=== PATIENT | male | born 1975 | race African-American/Black ===

== ENCOUNTER 2017-02-03 09:57 | Day surgery (SDC) | payer OTHER ==
[~2017-02-03 09:57] MED LIST: CIPROFLOXACIN 400 MG/D5W RTU 400 MG/200 ML RTUPB IV PRN; LACTATED RINGERS 1000 ML IV PRN; LIDOCAINE 0.5% INJ-PF (5 MG/ML) 50 ML SDV SUBCUT PRN; MORPHINE SULFATE 10 MG/ML INJ IV PRN; ONDANSETRON HCL INJ/PF 4 MG/2 ML SDV IV PRN
[2017-02-03] MEDS ORDERED: OPIUM/BELLADONNA ALKALOIDS 30-16.2 MG SUPP.RECT PR ONE (10:48)
[2017-02-03] MEDS ORDERED: LIDOCAINE 2% JELLY 30 ML TUBE ONE (10:50)
[2017-02-03] MEDS ORDERED: MIDAZOLAM 2 MG/2 ML INJ ONE (12:08)
[2017-02-03] MEDS ORDERED: FENTANYL CITRATE INJ/PF 100 MCG/2 ML AMPUL ONE (12:08)
[2017-02-03] MEDS ORDERED: PROMETHAZINE HCL INJ 25 MG/1 ML VIAL IV PRN ×2 (12:38)
[2017-02-03] MEDS ORDERED: MORPHINE SULFATE 10 MG/ML INJ IV PRN (12:38)
[2017-02-03] MEDS ORDERED: OXYCODONE-ACETAMINOPHEN 5-325 MG TABLET PO PRN ×2 (12:38)
[2017-02-03] MEDS ORDERED: ONDANSETRON HCL INJ/PF 4 MG/2 ML SDV IV PRN (12:38)
[2017-02-03] MEDS ORDERED: MEPERIDINE HCL/PF INJ 25 MG/1 ML DISP.SYRIN IV PRN (12:38)
[2017-02-03] MEDS ORDERED: FENTANYL CITRATE INJ/PF 100 MCG/2 ML AMPUL IV PRN ×3 (12:38)
[2017-02-03] MEDS ORDERED: DIPHENHYDRAMINE HCL 50 MG/ML VIAL IV PRN (12:38)
--- NOTE | 2017-02-03 13:17 | Brief Operative Note ---
BRIEF OPERATIVE REPORT DATE OF SURGERY: 02/03/17 TIME OF SURGERY: 12:00 PREOPERATIVE DIAGNOSIS: urethral stricture POSTOPERATIVE DIAGNOSIS: urethral stricture SURGEON: HERBERT BURHC FINDINGS: bulbar urethral stricture approx 8 fr COMPLICATIONS: none ESTIMATED BLOOD LOSS: 5 TISSUE REMOVED OR ALTERED: none TECHNICAL PROCEDURE: cystoscopy. suprapubic catheter placement
--- NOTE | 2017-02-03 14:06 | OPERATIVE REPORT E ---
Operative Report NAME: CHAPITO CANELA : 1975 AGE: 41Y DATE OF SURGERY: 02/03/2017 ROOM: PREOPERATIVE DIAGNOSIS: Urethral stricture. POSTOPERATIVE DIAGNOSIS: Urethral stricture. PROCEDURES: 1. Cystourethroscopy. 2. Placement of suprapubic catheter. SURGEON: Shan Diggs M.D. ESTIMATED BLOOD LOSS: 5. IV FLUID: 900 Ringer's lactate. DRAINS, TUBES, AND LINES: A 16-Belgian Mallory catheter as a suprapubic catheter secured. COMPLICATIONS: None. CONDITION: Stable. 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 This had a recurrence at the anastomosis and he had a previous DVIU followed by urethral dilation with recurrence. He presents now for suprapubic catheter placement for urethral rest prior to salvage urethroplasty. DESCRIPTION OF SURGERY: The patient was identified in the preoperative holding area. The surgery with all the attendant risks and benefits were again described in detail to the patient. He confirmed this and consented to proceed. He was given ciprofloxacin 400 mg intravenously and sequential compression devices were placed *------* prior to induction of general endotracheal anesthesia in the operating room. He then had his abdomen and genitalia prepped and draped in the usual sterile fashion. A surgical timeout was performed. All were in agreement and we then started the case. We started by placing a flexible 17-Belgian cystoscope in transurethrally. We encountered an approximately 8-Belgian bulbar urethral stricture, which we were unable to pass the scope beyond. Rather than dilating the stricture, we passed a guidewire through it, and over this wire, placed the 5-Belgian open-ended catheter. We then filled the bladder with 240 mL of normal saline to where we could easily palpate it on the abdomen. We placed the table in Trendelenburg position with the head down and made a skin ryan approximately 2 fingerbreadths above the pubic symphysis. We incised through this approximately 1 cm in length and dissected down bluntly to the fascia. We placed a spinal needle to engage the depth of the bladder. It was easily palpable and we then brought in the Shruthi trocar and we used this for impulse placement of a Mallory catheter. We placed the Shruthi trocar in and then placed a Mallory catheter 16-Belgian through this and blew up the balloon to 10 mL. We then irrigated the catheter with normal saline through the Razia syringe and had light pink urine returned. At this point, we secured the catheter in place with a drain stitch and placed 2 interrupted 3-0 Vicryl stitches in the deep dermal layer region for bringing the skin edges closer. We cleaned the patient, applied our dressing of 4 x 4s and foam tape over this to hold the catheter off tension, and we placed the drainage bag. We then awoken the patient from anesthesia and transferred him to the PACU in stable condition where he will be recovered. Plans for discharge per PACU protocol. He will follow up in 7-10 days for stitch removal and will ultimately follow up for retrograde urethrography and cystoscopy in about 3-4 weeks and repeat urethroplasty in 6-8 weeks. DICTATING PHYSICIAN: Shan Diggs MD [id number] PHY#: [id number] ID: [id number] JOB#: [id number] ACCT: [id number] cc:Shan Diggs M.D. >
[2017-02-03] MEDS ORDERED: OXYCODONE-ACETAMINOPHEN 5-325 MG TABLET ONE (14:07)
[2017-02-03] MEDS ORDERED: ONDANSETRON HCL INJ/PF 4 MG/2 ML SDV ONE (14:42)
[2017-02-03] MEDS ORDERED: SUCCINYLCHOLINE CHLORIDE INJ 200 MG/10 ML VIAL ONE (14:42)
[2017-02-03] MEDS ORDERED: GLYCOPYRROLATE INJ 0.4 MG/2 ML VIAL ONE (14:42)
[2017-02-03 15:14] VITALS: BP 126/82
== END 2017-02-03 15:10 | disposition home or self-care (01) ==
LOC: OROUT 09:57
PROVIDERS: ATTEND Urology
PROC: 0T9B80Z Drainage of Bladder with Drainage Device, Via Natural or Artificial Opening Endoscopic (ICD-10-PCS; principal; 2017-02-03 12:00)
DX: N35.8 Other urethral stricture (principal); F32.9 Major depressive disorder, single episode, unspecified; F41.8 Other specified anxiety disorders; Z79.899 Other long term (current) drug therapy
CPT/HCPCS: 51040; C1769; C1758; J2250; J3010; J3490; J0330; J2405; J0744; 800